=== PATIENT | female | born 1975 | race Caucasian/White ===

== ENCOUNTER → 2017-09-04 06:00 | Day surgery (SDC) | payer BC ==
[~2017-09-04 06:00] MED LIST: Acetaminophen IV 1GM/100ML * 1,000 MG/100 ML VIAL IVPB ONE; Acetaminophen IV 1GM/100ML * 100 ML ONE; Buffered Lidocaine 0.9% SYRIN* 5 ML/SYR SYRINGE INTRADERM ONE; Bupivacaine 0.5% PF 10 ML VIAL INJ ONE; Dexamethasone IV* 4 MG/ML 1 ML (4 MG) IV SLOW PU ONE; Dexamethasone IV* 4 MG/ML 1 ML (4 MG) ONE; EPHEDrine (Pressors)* 50 MG/ML VIAL ONE; EPINEPHRINE 1 MG/ML 1 ML VIAL ONE; Famotidine IV* 10 MG/ML 2 ML (20 mg) IV ONE; Famotidine IV* 10 MG/ML 2 ML (20 mg) ONE; HYDROmorphone INJ* 0.5 MG/0.5 ML SYRINGE IV PRN; HYDROmorphone INJ* 0.5 MG/0.5 ML SYRINGE ONE; Ketorolac INJ* 30 MG/ML 1 ML VIAL ONE; Lidocaine 2% PF * 5 ML VIAL ONE; Midazolam* 1 MG/ML 2 ML VIAL (2 MG) ONE; Naloxone* 0.4 MG/ML 1 ML VIAL IV PRN; Ondansetron INJ* 2 MG/ML VIAL IV PRN; Ondansetron INJ* 2 MG/ML VIAL ONE; PROCHLORPERAZINE INJ 5 MG/ML 2 ML VIAL IV PRN; Phenylephrine IV* 40 MCG/ML 10 ML SYRINGE ONE; Propofol* 10 MG/ML 20 ML BTL IV PUSH ONE; Rocuronium* 10 MG/ML VIAL ONE; Scopolamine 1.5 mg* PATCH ONE; Scopolamine 1.5 mg* PATCH TRANSDERM PRN; Scopolamine PATCH Remove* 1 NOTE MISC PATCH OFF ONE; Sterile Water for Inj* 10 ML ONE; ceFAZolin 2 GM PREMIX (*) 2 GM/50 ML BAG IVPB ONE; diPHENhydraMINE IV* 50 MG/ML 1 ml VIAL (BENADRYL) IV PRN; fentaNYL* 50 MCG/ML 2 ML VIAL (100 MCG VIAL) ONE; oxyCODONE TAB* 5 MG TAB PO PRN; oxyCODONE/Acetamin 5/325 MG* TAB ONE; oxyCODONE/Acetamin 5/325 MG* TAB PO PRN
[2017-09-04] MEDS: fentaNYL* 50 MCG/ML 2 ML VIAL (100 MCG VIAL) IV PRN ×2 (11:06→11:21)
[2017-09-04 12:30] VITALS: BP 140/79
--- NOTE | 2017-09-07 04:39 | OP ---
DATE OF OPERATION: 09/04/17 - FORMERLY [facility] DATE OF : 77 SURGEON: Francisco Marie MD CHIEF SECURITY AND SAFETY OFFICER: None. ANESTHESIOLOGIST: Nannette Warren MD ANESTHESIA: General anesthesia. PRE-OP DIAGNOSES: 1. Left knee ACL tear. 2. Left knee medial meniscus tear. 3. Left knee low-grade MCL sprain. 4. Possible left knee loose body. POST-OP DIAGNOSES: 1. Left knee ACL tear. 2. Left knee medial meniscus tear. 3. Left knee low-grade MCL sprain. 4. No loose body, left knee. OPERATIVE PROCEDURES: 1. Left knee arthroscopic ACL reconstruction with doym-ccktuwz-[id number] allograft. 2. Left knee arthroscopic partial medial meniscectomy. ANTIBIOTICS: Ancef 2 g IV. IV FLUIDS: 1000 cc crystalloid. TOURNIQUET TIME: 110 minutes. [id number]-GD-[id number] TIME: Approximately 135 minutes. Timer stopped into the final nqlg-xo-fufi time, may have been less than 135 minutes, but I am erring on a conservative side. ARTHROSCOPY FLUID: 7 bags with 3 L each for a total of 21 L of fluid. SPECIMEN: None. IMPLANTS: Gnjo-kfksoxs-paxl allograft, Mitek Shona biocomposite screws each 9 mm x 23 mm. COMPLICATIONS: None. ESTIMATED BLOOD LOSS: Minimal. 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 She had multiple incidences when she tried to stand after injuring herself, but felt popping in her knee and was not able to stand up. She then developed stiffness and limping. Then on , she had an additional injury to the knee while during CrossFit where the knee shifted suddenly and she had pain about the anterior knee. I saw the patient, ordering MRI, which showed a complete tear of the ACL, lateral bruises of the bone as well as of the medial tibial plateau and a meniscal tear of the medial meniscus posterior horn. There is a question of loose body about the anterior horn of the lateral meniscus. Discussed nonoperative and operative management of this injury. We opted for surgery. I sent the patient to physical therapy preoperatively to obtain full range of motion. In the clinic, she had only had 2 to 90 degrees of motion, but she regained full range of motion in physical therapy. I discussed the possible graft choices with the patient and she opted for allograft. Discussed risks and potential complications of surgery including bleeding, infection, nerve or blood vessel injury, graft re-rupture, knee pain, osteoarthritis, stiffness. DESCRIPTION OF PROCEDURE: Preoperative consent was obtained in preoperative holding. Operative extremity was marked in preoperative holding. The patient was taken back to the operative room, placed supine on operating room table. The patient was sedated and intubated. The left lower extremity was prepped and draped. A lateral post had been placed on the table. Surgical time-out was performed. Esmarch was applied and the tourniquet was elevated to 300 mmHg. Anterolateral knee arthroscopy portal was established using standard technique. Diagnostic arthroscopy was commenced. The patellofemoral compartment did not have any damage to the articular cartilage. I next moved to the medial compartment. The posterior body and posterior horn seemed to be displaced into the compartment a little bit centrally indicating a possible tear. I next moved to the intercondylar notch and noted ACL tear. I made an anteromedial knee arthroscopy portal using standard technique under direct visualization. I entered a probe into the medial compartment. Probed the medial meniscus. It appeared as though there was a longitudinal, vertical tear in the more central part of the meniscus, about the junction of the white- white and white-red zones. This was clearly more than 5 mm from the periphery. Therefore, I made the decision to debride rather than to repair the medial meniscus. I debrided that medial meniscus back to that longitudinal tear using biters and an arthroscopic shaver. Once I got back to the longitudinal tear, it was obvious that there were multiple planes to this tear with horizontal tearing, longitudinal tearing, and oblique-oriented tearing. I continued to debride the medial meniscus back to a stable rim working through both the anteromedial and the knee anterolateral portal using meniscal biters and an arthroscopic shaver. I debrided the meniscus back to a stable rim. I was careful to avoid any damage to articular cartilage. I next moved to the lateral compartment and found there to be no lateral meniscus or lateral articular cartilage injury. I moved to the intercondylar notch. The proximal one-half of the ACL was not present. There were still some stump present distally. There was a flap of this stump very close to the anterior horn of the lateral meniscus. This seemed to be part of the ACL stump, although could have been a synovialized loose body. I debrided the ACL stump. I had the [facility] Knee Positioner placed on the operating room table and continued my debridement in the intercondylar notch. I created an accessory anteromedial portal and cleared off the intercondylar notch with this. I started my notchplasty. Of note, the patient appeared to have a very narrow notch. While I was debriding the intercondylar notch, the patient certainly had some bleeding especially with the knee flexed. Therefore, I elevated the tourniquet to 350 mmHg. This helped somewhat. I dropped the tourniquet and turned my attention to the back table. I had thawed a hvmo-tddbzzc-ziwj allograft, with precontoured bony blocks. I contoured these a little bit additionally. I placed new drill holes, 2 in the distal bone block and 1 in the proximal bone block. I placed FiberWire #5 suture into both ends of the graft, 2 distally and 1 proximally. I placed several throws of each stitch through the tendon and then placed the stitch through bone. I placed the graft on the back table under tension with a moist sponge overlying it. I returned to the knee. Esmarch was reapplied and tourniquet was reelevated. I completed my notchplasty. I marked with a Jasiel awl the 1:30 o'clock with the knee in 90 degrees of flexion. This was close to the proximal most aspect of the articular cartilage posteriorly, another landmark that I used. I hyperflexed the knee to approximately 105 degrees and used a 7 mm around the back guide. I placed a pin into the femur and then I drilled a 10 mm femoral tunnel. It was approximately 30 to 35 mm in depth. I removed the drill and the pin and I debrided with my arthroscopic shaver the detritus from that tunnel. I liked my tunnel position. I returned the knee to a 90 degree flexion angle. I placed my ACL tibial guide set at 55 degrees. I made an anteromedial proximal lower leg incision longitudinally, spread down to bone to place my pin. I then placed my pin. I liked it. It was placed mid coronal, from medial to lateral. The pin was placed exit at the level of the posterior most aspect of the anterior horn of the lateral meniscus. I drilled the 10 mm tunnel. I removed hardware and then shaved with an arthroscopic shaver. I placed a passing stitch, size 0. I used that to pass my graft. I capped and then placed a 9 x 23 mm biocomposite screw in the femur. I tapped and then placed a 9 x 23 mm screw in the tibia. I placed that second screw with a posterior drawer applying to the knee. With the hardware in place, I performed Desiree and anterior drawer maneuvers that showed no laxity. The patient had full range of motion of the knee passively. I cut sutures proximally and distally. I closed the periosteum over the tibial tunnel with a buried [id number] stitches using Vicryl 0 suture. I closed the subcutaneous tissue of that incision with buried simple stitches using Vicryl 2-0 suture. I closed the skin incisions using nylon 3-0 suture, figure- of-eight stitches about the arthroscopy of portal skin incisions and a running stitch about the longitudinal incision more distally. Xeroform, 4x4s, ABD, sterile Webril, Joni bandage from foot to proximal thigh. A knee brace was placed with knee locked in extension. Cooling unit applied. Tourniquet was dropped. DISPOSITION: The patient was awakened and transferred to the PACU. The patient was discharged home when medically stable. The patient is to begin physical therapy several days postoperatively. She will see me in clinic 10 to 14 days postoperatively. She was given wound care instructions. She was given a Percocet prescription and a prescription for aspirin to take b.i.d. for 2 weeks for DVT prophylaxis. She was also given a 3-day supply of Keflex for infection prophylaxis. [id number]/[facility] #: [id number] [facility]
== END | disposition home or self-care (01) ==
LOC: OR 06:00
PROVIDERS: ATTEND Orthopaedic Surgery
DX: S83.512A Sprain of anterior cruciate ligament of left knee, initial encounter (principal); S83.242A Other tear of medial meniscus, current injury, left knee, initial encounter; S83.412A Sprain of medial collateral ligament of left knee, initial encounter; X58.XXXA Exposure to other specified factors, initial encounter; Y93.64 Activity, baseball; Y92.9 Unspecified place or not applicable; F41.9 Anxiety disorder, unspecified; I10 Essential (primary) hypertension
CPT/HCPCS: 81025; A9270-GY; C1776; J0690; J1100; J1170; J1885; J2250; J2405; J2704; J3010